=== PATIENT | female | born 1990 | race Two or more races ===

== ENCOUNTER 2024-11-30 08:11 | Outpatient (CLI) | payer OTHER | END 2024-11-30 08:15 | disposition home or self-care (01) | LOC: PRENATAL 08:11 | PROVIDERS: ATTEND Obstetrics & Gynecology Maternal & Fetal Medicine | DX: O44.00 Complete placenta previa NOS or without hemorrhage, unspecified trimester (principal); Z3A.21 21 weeks gestation of pregnancy ==

== ENCOUNTER 2025-01-25 12:05 | Outpatient (CLI) | payer OTHER | END 2025-01-25 12:06 | disposition home or self-care (01) | LOC: PRENATAL 12:05 | PROVIDERS: ATTEND Obstetrics & Gynecology Maternal & Fetal Medicine | DX: O26.849 Uterine size-date discrepancy, unspecified trimester (principal); O36.60X0 Maternal care for excessive fetal growth, unspecified trimester, not applicable or unspecified; O99.019 Anemia complicating pregnancy, unspecified trimester; Z3A.32 32 weeks gestation of pregnancy ==

== ENCOUNTER → 2025-03-07 09:32 | Outpatient (CLI) | payer OTHER | END | disposition home or self-care (01) | LOC: PRENATAL 09:32 | PROVIDERS: ATTEND Obstetrics & Gynecology Maternal & Fetal Medicine | DX: O26.849 Uterine size-date discrepancy, unspecified trimester (principal); O36.8199 Decreased fetal movements, unspecified trimester, other fetus; O99.019 Anemia complicating pregnancy, unspecified trimester; Z3A.37 37 weeks gestation of pregnancy ==

== ENCOUNTER 2025-04-06 07:21 | Inpatient (IN) | payer OTHER ==
[~2025-04-06] VITALS: Ht 167.6 cm; Wt 3.6 kg
[2025-04-06 07:24] VITALS: BP 120/76; O2SAT 98
[2025-04-06] MEDS ORDERED: KEPPRA1000 MG PO (08:28)
[2025-04-06] MEDS ORDERED: IRON236 MG PO (08:28)
[2025-04-06] MEDS ORDERED: PRENATAL TABLE1 EAC1 PO (08:28)
[2025-04-06] MEDS ORDERED: CLINDAMYCIN PHOSPHATE 150 MG/ML (900mg) IV ONE (08:30)
[2025-04-06] MEDS ORDERED: RINGERS SOLUTION,LACTATED 1,000 ML IV SCH (08:30)
[2025-04-06 08:47] LABS: BASO % 0.4 % (0.1-1.2); EOS # 0.12 (0.04-0.54); EOS % 2.2 % (0.7-7.0); LYMPH # 1.42 (1.18-3.74); LYMPH % 26.5 % (19.3-53.1); MEAN PLATELET VOLUME 10.20 fl (9.4-12.4); MONO # 0.56 (0.24-0.82); MONO % 10.5 % (4.7-12.5); NEUT # 3.21 (1.56-6.13); NEUT % 60.0 % (34.0-71.1); RED CELL DISTRIBUTION WIDTH 13.6 % (11.6-14.4)
[2025-04-06 08:58] LABS: URINE APPEARANCE Clear; URINE BILIRRUBIN Negative (NEGATIVE); URINE BLOOD Negative; URINE COLOR Yellow; URINE GLUCOSE Negative (NEGATIVE); URINE KETONE Negative (NEGATIVE); URINE LEUKOCYTE Moderate; URINE NITRATE Negative; URINE PROTEIN Negative (NEGATIVE); URINE UROBILINOGEN 0.2 E.U./dl
[2025-04-06 09:03] LABS: URINE BACTERIA 1856.0 uL (0.0-1933); URINE EPITHELIAL CELLS 25.8 uL (0.0-38.8); URINE RBC 2.7 uL (0.0-20.8); URINE WBC 139.0 uL (0.0-23.2)
[2025-04-06 09:20] LABS: URINE CAST 0.43 uL (0.0-1.40)
[2025-04-06 09:29] LABS: INR 0.96
[2025-04-06 10:00] LABS: ALT/SGPT 28.0 U/L (12-78); AST/SGOT 13.0 U/L (15-37); BILIRUBIN TOTAL 0.38 mg/dL (0.3-1.2); BUN CREA RATIO 11.0 (7.0-25.0); CREATININE SERUM 0.56 mg/dL (0.55-1.02); GFR 125.45; GLOBULINA 3.3 G/DL (2.4-3.5); GLUCOSE FASTING 87.0 mg/dL (65-100); OSMOLALITY SERUM 278.0 MOSM/KG (275-295); TSH 2.67 uIU/mL (0.358-3.74)
[2025-04-06 11:48] VITALS: BP 108/67
[2025-04-06] MEDS ORDERED: ERYTHROMYCIN BASE OPHT 1GM EACH TUBE OP ONE (14:36)
[2025-04-06] MEDS ORDERED: OXYTOCIN 10 UNITS/ML VIAL ONE (14:36)
[2025-04-06] MEDS ORDERED: ONDANSETRON HCL 2 MG/ML VIAL IV PRN (16:00)
[2025-04-06] MEDS ORDERED: OXYTOCIN 1,000 ML IV SCH (16:00)
[2025-04-06] MEDS ORDERED: MORPHINE SULFATE 4 MG/ML CARTRIDGE IV PRN (16:00)
[2025-04-06] MEDS ORDERED: KETOROLAC TROMETHAMINE 30 MG VIAL IV PRN (16:00)
[2025-04-06] MEDS ORDERED: SIMETHICONE 125 MG CAPSULE PO SCH (18:00)
[2025-04-06] MEDS ORDERED: MORPHINE SULFATE 4 MG/ML VIAL IV ONE ×2 (18:15→18:45)
[2025-04-06] MEDS ORDERED: LevETIRAcetam 500 MG TAB. PO SCH (19:36)
[2025-04-06] MEDS ORDERED: KETOROLAC TROMETHAMINE 30 MG VIAL ONE (19:55)
[2025-04-06] MEDS ORDERED: SIMETHICONE 125 MG CAPSULE PO ONE (20:12)
[2025-04-06 20:26] LABS: BASO % 0.1 % (0.1-1.2); EOS # 0.03 (0.04-0.54); EOS % 0.4 % (0.7-7.0); LYMPH # 1.22 (1.18-3.74); LYMPH % 16.2 % (19.3-53.1); MEAN PLATELET VOLUME 9.70 fl (9.4-12.4); MONO # 0.60 (0.24-0.82); MONO % 8.0 % (4.7-12.5); NEUT # 5.66 (1.56-6.13); NEUT % 75.0 % (34.0-71.1); RED CELL DISTRIBUTION WIDTH 13.2 % (11.6-14.4)
[2025-04-06 21:13] VITALS: BP 117/79
[2025-04-07] VITALS: BP 113/73
[2025-04-07 08:53] VITALS: BP 128/78; O2SAT 99
[2025-04-07] MEDS ORDERED: NAPROXEN 500 MG TABLET PO SCH (09:06)
[2025-04-07] MEDS ORDERED: ACETAMINOPHEN WITH CODEINE 1 UDTAB TABLET PO PRN (09:15)
[2025-04-07 16:34] VITALS: BP 128/74
[2025-04-08] VITALS: BP 131/83
[2025-04-08 08:48] VITALS: BP 126/84
[2025-04-08 16:36] VITALS: BP 102/67
[2025-04-09 00:30] VITALS: BP 111/74
[2025-04-09 09:17] VITALS: BP 139/76
[2025-04-09] MEDS ORDERED: NAPROXEN500 MG PO (12:40)
[2025-04-09] MEDS ORDERED: KEPPRA500 MG PO (12:40)
[2025-04-09] MEDS ORDERED: COLACE100 MG PO (12:41)
== END 2025-04-09 13:24 | disposition home or self-care (01) | DRG 788 ==
LOC: LDR 07:21 → OB/GYN 07:21 → O/R 17:27 → OB/GYN 18:39
PROVIDERS: Obstetrics & Gynecology; ADMIT Obstetrics & Gynecology; ATTEND Obstetrics & Gynecology
PROC: 4A1HXCZ Monitoring of Products of Conception, Cardiac Rate, External Approach (ICD-10-PCS; 2025-04-06)
PROC: 10D00Z1 Extraction of Products of Conception, Low, Open Approach (ICD-10-PCS; principal; 2025-04-06 15:00)
DX: O82 Encounter for cesarean delivery without indication (principal); Z3A.38 38 weeks gestation of pregnancy; Z37.0 Single live birth